=== PATIENT | male | born 1955 | race Caucasian/White ===

== ENCOUNTER 2023-07-28 03:42 | Emergency (ER) | payer BC, MEDICARE ==
[~2023-07-28] VITALS: Ht 176.5 cm; Wt 87.8 kg
[2023-07-28] MEDS ORDERED: ketorolac trometh inj. 60 MG/2 ML VIAL IM ONE (04:25)
[2023-07-28 05:29] LABS: BASOPHILS % (AUTO) 0.1 % (0-1); EOSINOPHILS % (AUTO) 0.1 % (0-6); HEMATOCRIT 40.3 % (42.0-52.0); HEMOGLOBIN 13.8 g/dl (14.0-17.9); LYMPHOCYTES % (AUTO) 6.6 % (21-51); MEAN CORPUSCULAR HEMOGLOBIN 30.9 PG (27.0-31.0); MEAN CORPUSCULAR HGB CONC 34.4 g/dL (33.0-36.5); MEAN PLATELET VOLUME 7.7 FL (7.4-10.4); MONOCYTES # (AUTO) 0.8 X10'3 (0-0.9); MONOCYTES % (AUTO) 4.9 % (2-12); NEUTROPHILS # (AUTO) 13.9 X10'3 (1.8-7.7); NEUTROPHILS % (AUTO) 88.3 % (42-75); PLATELET COUNT 306 X10'3 (140-440); RED BLOOD COUNT 4.47 X10'6 (4.70-6.10); RED CELL DISTRIBUTION WIDTH 12.7 % (11.5-14.5); WHITE BLOOD COUNT 15.8 X10'3 (4.5-11.0)
[2023-07-28 05:37] LABS: ALANINE AMINOTRANSFERASE 31 U/L (12-78); ALBUMIN 4.5 G/DL (3.4-5.0); ALBUMIN/GLOBULIN RATIO 1.3 (1.1-1.5); ALKALINE PHOSPHATASE 64 IU/L (46-116); ANION GAP 8 (8-16); ASPARTATE AMINO TRANSFERASE 24 U/L (10-37); BILIRUBIN,TOTAL 0.4 MG/DL (0.1-1.0); BLOOD UREA NITROGEN 9 MG/DL (7-18); BUN/CREATININE RATIO 9.8 (10.0-20.0); CALCIUM 9.1 MG/DL (8.5-10.1); CHLORIDE 101 MMOL/L (99-107); CREATININE 0.92 MG/DL (0.60-1.10); GLUCOSE 128 MG/DL (70-104); POTASSIUM 3.7 MMOL/L (3.5-5.1); SODIUM 135 MMOL/L (135-145); TOTAL CARBON DIOXIDE 25.8 MMOL/L (24-32); TOTAL PROTEIN 8.1 G/DL (6.4-8.2); eCRCL 80 ML/MIN; eGFR 82 ML/MIN
[2023-07-28] MEDS ORDERED: ondansetron/PF 4mg/2ml inj IV ONE (09:15)
[2023-07-28] MEDS ORDERED: morphine 4 MG/ML inj SYRINge IV ONE (09:15)
[2023-07-28] MEDS ORDERED: normal saline 1000ML IV soln IVB ONE (09:15)
[2023-07-28] MEDS ORDERED: ONDA4TAB12 PO (11:37)
[2023-07-28 11:54] VITALS: BP 135/74; PULSE 64; RESP 14; TEMP 98.2; O2SAT 98
== END 2023-07-28 11:58 | disposition home or self-care (01) ==
LOC: ER 03:42
DX: R10.11 Right upper quadrant pain (principal)
CPT/HCPCS: 36415; 74176; 76700; 80053; 83605; 84145; 84484; 85025; 87040; 96361; 96372; 96374; 96375; 99285; J1885; J2270; J2405; J7030

== ENCOUNTER 2023-12-04 09:01 | Inpatient (IN) | payer BC, MEDICARE ==
[~2023-12-04] VITALS: Ht 177.8 cm; Wt 93.8 kg
[2023-12-04] VITALS (20 sets, daily range): BP systolic 108–136; BP diastolic 56–86; PULSE 52–73; RESP 11–23; TEMP 97.4–97.8; O2SAT 94–100
[~2023-12-04 09:01] MED LIST: ONDA4TAB12 PO
[2023-12-04 10:41] LABS: BASOPHILS % (AUTO) 0.4 % (0-1); EOSINOPHILS % (AUTO) 0.1 % (0-6); HEMATOCRIT 39.7 % (42.0-52.0); HEMOGLOBIN 13.3 g/dl (14.0-17.9); MEAN CORPUSCULAR HEMOGLOBIN 30.2 PG (27.0-31.0); MEAN CORPUSCULAR HGB CONC 33.4 g/dL (33.0-36.5); MEAN CORPUSCULAR VOLUME 90.5 FL (78-98); MEAN PLATELET VOLUME 7.8 FL (7.4-10.4); MONOCYTES # (AUTO) 0.8 X10'3 (0-0.9); MONOCYTES % (AUTO) 6.8 % (2-12); NEUTROPHILS # (AUTO) 10.3 X10'3 (1.8-7.7); NEUTROPHILS % (AUTO) 84.7 % (42-75); PLATELET COUNT 282 X10'3 (140-440); RED BLOOD COUNT 4.39 X10'6 (4.70-6.10); WHITE BLOOD COUNT 12.2 X10'3 (4.5-11.0)
[2023-12-04 10:53] LABS: ALBUMIN 4.1 G/DL (3.4-5.0); ANION GAP 9 (8-16); BLOOD UREA NITROGEN 15 MG/DL (7-18); BUN/CREATININE RATIO 15.3 (10.0-20.0); CALCIUM 8.8 MG/DL (8.5-10.1); CHLORIDE 106 MMOL/L (99-107); CREATININE 0.98 MG/DL (0.60-1.10); GLUCOSE 123 MG/DL (70-104); LIPASE 29 U/L (16-77); POTASSIUM 4.2 MMOL/L (3.5-5.1); SODIUM 140 MMOL/L (135-145); TOTAL CARBON DIOXIDE 24.9 MMOL/L (24-32); eCRCL 77 ML/MIN; eGFR 77 ML/MIN
[2023-12-04] MEDS: normal saline 1000ML IV soln IVB ONE (12:17)
[2023-12-04] MEDS: morphine 4 MG/ML inj SYRINge IV ONE (12:17)
[2023-12-04] MEDS: ondansetron/PF 4mg/2ml inj IV ONE (12:17)
[2023-12-04 12:24] LABS: ALANINE AMINOTRANSFERASE 27 U/L (12-78); ALBUMIN 4.2 G/DL (3.4-5.0); ALBUMIN/GLOBULIN RATIO 1.1 (1.1-1.5); ALKALINE PHOSPHATASE 73 IU/L (46-116); ASPARTATE AMINO TRANSFERASE 16 U/L (10-37); BILIRUBIN,DIRECT 0.1 MG/DL (0-0.3); BILIRUBIN,TOTAL 0.4 MG/DL (0.1-1.0); TOTAL PROTEIN 8.1 G/DL (6.4-8.2)
[2023-12-04] MEDS: INDOCYANINE GREEN 25 MG/10 ML VIAL IV STA (13:06)
[2023-12-04] MEDS: piperacillin/tazo 4.5gm/100ml 100 ML IV ONE (13:08)
[2023-12-04] MEDS ORDERED: BUPIVAcaine 2.5mg/ml inj 50ml vial (contains preservative) ONE (13:22)
[2023-12-04] MEDS ORDERED: LIDOcaine 1% 30ml preserv. free vial ONE (13:22)
[2023-12-04] MEDS ORDERED: sevoflurane 250ml liquid IH ONE (14:32)
[2023-12-04] MEDS ORDERED: fentaNYL/PF 50MCG/1 ML 2ML syringe ONE (14:40)
[2023-12-04] MEDS ORDERED: midazolam 1 mg/ML 2ml injection ONE (14:40)
[2023-12-04] MEDS ORDERED: propofol inj 20 ML IV ONE (14:41)
[2023-12-04] MEDS: ringers solution, lacted 1,000 ML IV SCH ×2 (15:20→17:48)
[2023-12-04] MEDS ORDERED: meperidine/PF 25mg/ml syringe IV PRN ×3 (15:20)
[2023-12-04] MEDS ORDERED: morphine 2 MG/ML inj. syringe IV PRN (15:20)
[2023-12-04] MEDS ORDERED: morphine 4 MG/ML inj SYRINge IV PRN (15:20)
[2023-12-04] MEDS ORDERED: enalaprilat dihydrate 2.5mg/2ml vial IV PRN (15:20)
[2023-12-04] MEDS ORDERED: labetalol 20mg/4ml (5mg/ml) syringe IV PRN (15:20)
[2023-12-04] MEDS ORDERED: ondansetron/PF 4mg/2ml inj IV PRN ×2 (15:20→16:30)
[2023-12-04] MEDS ORDERED: proCHLORperazine 10 MG/2 ml inj IV PRN (15:20)
[2023-12-04] MEDS ORDERED: ondansetron/PF 4mg/2ml inj ONE (15:34)
[2023-12-04] MEDS ORDERED: rocuronium 10mg/ml inj IV ONE (15:36)
[2023-12-04] MEDS ORDERED: dexamethasone sod phosphate 4mg/ml inj. ONE (15:36)
[2023-12-04] MEDS: LIDOcaine 1% 30ml preserv. free vial IJ ONE (15:41)
[2023-12-04] MEDS: BUPIVAcaine 2.5mg/ml inj 50ml vial (contains preservative) SQ ONE (15:43)
[2023-12-04] MEDS ORDERED: glycopyrrolate 0.2mg/ml inj ONE (16:05)
[2023-12-04] MEDS ORDERED: neostigmine methylsulfate 1 MG/ML 10ml vial ONE (16:05)
[2023-12-04] MEDS ORDERED: HYDROcodone/acetaminophen 5mg/325mg tablet PO PRN (16:30)
[2023-12-04] MEDS ORDERED: naloxone 0.4 mg/ml inj IV PRN (16:30)
[2023-12-05] MEDS: ceFOXitin inj 1,000 MG in normal saline 100ml IV soln 100 ML IV SCH (00:48)
[2023-12-05 02:00] VITALS: BP 104/59; PULSE 78; RESP 18; TEMP 98; O2SAT 96
[2023-12-05] MEDS: HYDROcodone/acetaminophen 10/325mg tab PO PRN (05:37)
[2023-12-05 06:12] VITALS: BP 140/65; PULSE 51; RESP 16; TEMP 98; O2SAT 96
[2023-12-05 08:00] VITALS: RESP 16; O2SAT 96
[2023-12-05] MEDS ORDERED: HYDR-3964 PO (09:11)
[2023-12-05 10:00] VITALS: BP 118/65; PULSE 50; RESP 17; TEMP 98.1; O2SAT 98
[2023-12-05 10:31] LABS: BASOPHILS % (AUTO) 0.1 % (0-1); EOSINOPHILS % (AUTO) 0.3 % (0-6); HEMATOCRIT 34.1 % (42.0-52.0); HEMOGLOBIN 11.6 g/dl (14.0-17.9); LYMPHOCYTES # (AUTO) 1.6 X10'3 (1.1-4.8); LYMPHOCYTES % (AUTO) 14.3 % (21-51); MEAN CORPUSCULAR HEMOGLOBIN 30.7 PG (27.0-31.0); MEAN CORPUSCULAR HGB CONC 33.8 g/dL (33.0-36.5); MEAN CORPUSCULAR VOLUME 90.6 FL (78-98); MEAN PLATELET VOLUME 7.8 FL (7.4-10.4); MONOCYTES # (AUTO) 1.3 X10'3 (0-0.9); MONOCYTES % (AUTO) 11.7 % (2-12); NEUTROPHILS % (AUTO) 73.6 % (42-75); PLATELET COUNT 244 X10'3 (140-440); RED BLOOD COUNT 3.77 X10'6 (4.70-6.10); RED CELL DISTRIBUTION WIDTH 13.1 % (11.5-14.5); WHITE BLOOD COUNT 10.9 X10'3 (4.5-11.0)
[2023-12-05 11:38] LABS: ALANINE AMINOTRANSFERASE 40 U/L (12-78); ALBUMIN 3.2 G/DL (3.4-5.0); ALKALINE PHOSPHATASE 54 IU/L (46-116); ASPARTATE AMINO TRANSFERASE 30 U/L (10-37); BILIRUBIN,TOTAL 0.4 MG/DL (0.1-1.0); BLOOD UREA NITROGEN 9 MG/DL (7-18); BUN/CREATININE RATIO 9.1 (10.0-20.0); CALCIUM 7.5 MG/DL (8.5-10.1); CHLORIDE 106 MMOL/L (99-107); CREATININE 0.99 MG/DL (0.60-1.10); GLUCOSE 126 MG/DL (70-104); POTASSIUM 3.7 MMOL/L (3.5-5.1); SODIUM 141 MMOL/L (135-145); TOTAL PROTEIN 6.4 G/DL (6.4-8.2); eCRCL 76 ML/MIN; eGFR 76 ML/MIN
[2023-12-05 11:40] LABS: ANION GAP 9 (8-16); TOTAL CARBON DIOXIDE 26.1 MMOL/L (24-32)
== END 2023-12-05 11:45 | disposition home or self-care (01) | DRG 419 ==
LOC: ER 09:02 → UNDOADMIN 16:26 → ORTHO 4S 16:26
PROVIDERS: ADMIT Surgery; ATTEND Surgery
PROC: 0WQF4ZZ Repair Abdominal Wall, Percutaneous Endoscopic Approach (ICD-10-PCS; 2023-12-04)
PROC: 8E0W4CZ Robotic Assisted Procedure of Trunk Region, Percutaneous Endoscopic Approach (ICD-10-PCS; 2023-12-04)
PROC: BF52200 Other Imaging of Gallbladder using Fluorescing Agent, Indocyanine Green Dye, Intraoperative (ICD-10-PCS; 2023-12-04)
PROC: 0FT44ZZ Resection of Gallbladder, Percutaneous Endoscopic Approach (ICD-10-PCS; principal; 2023-12-04 14:32)
DX: K80.00 Calculus of gallbladder with acute cholecystitis without obstruction (principal); K42.9 Umbilical hernia without obstruction or gangrene; K82.8 Other specified diseases of gallbladder
CPT/HCPCS: 99285; Z7506; Z7508; 36415; 76700; 80048; 80053; 80076; 83690; 84484; 85025; 87081; 93005; A4215; A4618; A7000; G0378; J0694; J1100; J2250; J2270; J2405; J2543; J2704; J2710; J3010; J3490; J7030; J7120